=== PATIENT | female | born 1985 | race Caucasian/White ===

== ENCOUNTER 2025-03-14 11:23 | Emergency (ER) | payer MEDICAID, SELFPAY ==
--- NOTE | ~2025-03-14 | CT_ITS ---
CLINICAL HISTORY: right axilla swelling, pain x [address] chest without contrast Comparison: None provided Findings: Lung oreilly are clear without acute infiltrates. Indeterminate 2 mm right upper lobe nodule. 12 month follow-up may be of value. No significant mediastinal adenopathy. No significant free pleural fluid. No significant focal bony abnormalities. Indeterminate soft tissue density noted right axilla. Differential includes normal breast tissue. Contusions, hematomas and/or infection possible. No significant subcutaneous stranding is identified. Multiple other etiologies are possible. This can not be further characterized by CT. Impression: Indeterminate soft tissue densities in right axilla No acute processes This document has been electronically signed by: Wayne Dhillon MD on 03/14/2025 19:13:51
[2025-03-14 11:45] VITALS: BP 100/64; PULSE 97; RESP 16; TEMP 37.1; O2SAT 98; BMI 18.3
--- NOTE | 2025-03-14 11:45 | ED_ITS ---
HPI - General Adult General Chief complaint: Skin/Abscess/Foreign Body Stated complaint: pain under r arm pit Time Seen by Provider: 03/14/25 16:05 Related Data Previous Rx's ?Medication ?Instructions ?Recorded doxycycline hyclate 100 mg capsule 100 mg PO BID cough 7 days #14 caps 03/14/25 Allergies Allergy/AdvReac Type Severity Reaction Status Date / Time No Known Allergies Allergy Verified 03/14/25 11:46 [facility] Social History Social History Alcohol intake: current Smoked in Last 30 Days: Yes Use of substances other than those prescribed or required for medical reasons: No Advance Directives: No Advance Directives Information Provided: Yes Physical Exam ED Vital Signs: Vital Signs - 24 hr 03/14/25 11:45 03/14/25 16:07 03/14/25 17:35 Temperature 98.8 F 98.1 F Pulse Rate 97 62 62 Respiratory Rate 16 16 15 Blood Pressure 100/64 103/61 101/55 L Pulse Oximetry 98 99 100 Oxygen Delivery Method Room Air Room Air Room Air 03/14/25 19:12 Temperature 98.0 F Pulse Rate 60 Respiratory Rate 20 Blood Pressure 92/59 L Pulse Oximetry 98 Oxygen Delivery Method Room Air BMI result Body Mass Index 18.3 Course Course Course Narrative: RME, this is a rapid medical exam performed by Zechariah Gonzales please refer to primary provider for complete H&P- 40 year old female presents for evaluation of a mass to the right axilla that has been growing and more painful for over a week Medications Administered Discontinued Medications Generic Name Dose Route Start Last Admin Trade Name Lei PRN Reason Stop Dose Admin Sodium Chloride 500 mls @ 999 mls/hr 03/14/25 16:30 03/14/25 17:20 Ns IV 03/14/25 17:00 Infused .Q31M MATT Infusion Ketorolac Tromethamine 30 mg 03/14/25 16:22 03/14/25 16:54 Ketorolac Tromethamine 30 Mg/Ml Vial IVPUSH 03/14/25 16:23 30 mg ONCE ONE Administration Medical Decision Making Lab Data 03/14/25 16:33 03/14/25 16:33 Labs: Lab Results 03/14/25 03/14/25 Range/Units 16:33 18:20 WBC 5.7 (4.8-10.8) X10*3/uL RBC 4.11 L (4.20-5.50) X10*6/uL Hgb 12.6 (12.0-16.0) g/dl Hct 36.0 L (37.0-47.0) % MCV 87.6 (80.0-98.0) fL MCH 30.7 (27.0-33.0) pg MCHC 35.0 (31.0-35.0) g/dl RDW 12.7 (11.0-16.0) % Plt Count 238 (160-400) X10*3/uL MPV 10.1 (9.4-12.3) fL Immature Gran % (Auto) 0.2 (0.0-0.4) % Neut % (Auto) 61.4 (45-73) % Lymph % (Auto) 31.1 (20-40) % [place] % (Auto) 4.0 (2-11) % Eos % (Auto) 2.8 (0-4) % Baso % (Auto) 0.5 (0-2) % Lymph # (Auto) 1.8 (1.2-4.9) X10*3/uL [place] # (Auto) 0.2 (0.1-1.2) X10*3/uL Eos # (Auto) 0.2 (0.0-0.4) X10*3/uL Baso # (Auto) 0.0 (0.0-0.2) X10*3/uL Abs Immat Gran (auto) 0.01 (0.00-0.03) X10*3/uL Absolute Neuts (auto) 3.5 (2.0-8.3) x10*3/uL Absolute Nucleated RBC 0.000 (0.0-0.012) X10*3/uL Nucleated RBC % (auto) 0.0 (0.0-0.2) /100WBC Sodium 142 (135-145) mmol/L Potassium 4.3 (3.3-5.1) mmol/L Chloride 105 (96-108) mmol/L Carbon Dioxide 31 H (22-29) mmol/L Anion Gap 10 L (12-20) BUN 8 L (9-16) mg/dL Creatinine 0.71 (0.5-1.4) mg/dL Estim Creat Clear Calc 84.6 Estimated GFR > 60 Random Glucose 97 (60-115) mg/dL Calcium 9.3 (8.4-10.2) mg/dL Total Bilirubin 0.4 (0.0-1.0) mg/dL Direct Bilirubin 0.2 (0.0-0.5) mg/dL AST 13 (5-31) U/L ALT 9 (0-31) U/L Alkaline Phosphatase 77 (39-117) U/L Total Protein 6.9 (6.5-8.0) g/dL Albumin 4.6 (3.5-5.0) g/dL Beta HCG, Quant < 2 mIU/mL Urine Color Yellow Urine Appearance Clear Urine pH 6.5 (5.0-9.0) Ur Specific [place] 1.010 (1.005-1.025) Urine Protein Negative (Neg-Trace) mg/dL Urine Glucose (UA) Negative (Negative) mg/dL Urine Ketones Negative (Negative) mg/dL Urine Blood Negative (Negative) Urine Nitrite Negative (Negative) Ur Leukocyte Esterase Negative (Negative) Urine RBC 0-2 (0-2) /HPF Urine WBC 0-5 (0-5) /HPF Ur Squamous Epith Cells 3-5 (0-2) /HPF Urine Bacteria Trace (None Seen) Hyaline Casts 0-2 (0-2) /LPF Discharge Plan Discharge Clinical Impression: Cellulitis Patient Disposition: Home, Self-Care Additional Instructions: A mass was found in your right armpit area. We can not be sure what is causing this. You will need follow-up with surgery. The phone number for the surgeon was given to you. There is a very small chance this is an infection. Nevertheless we will give you an antibiotic for 1 week. Close follow-up advised. Risk of malignancy still exists. Prescriptions: New doxycycline hyclate 100 mg capsule 100 mg PO BID 7 Days Qty: 14 0RF Referrals: Hoa Edge MD [Physician, General Surgery] - 03/17/25 Referral Note: Please follow-up for the mass in your right axilla in 2 days. Print Language: Polish
[2025-03-14 16:07] VITALS: BP 103/61; PULSE 62; RESP 16; O2SAT 99
--- NOTE | 2025-03-14 16:12 | PC.NURSE ---
Patient is a 40 year old female presents for evaluation of a mass to the right axilla that has been growing and more painful for over a week. Alert and oriented. Lungs clear bilat. Respirations even and non-labored. Abdomen soft, non-tender with positive bowel sounds.
--- NOTE | 2025-03-14 16:23 | ED.SKABFB ---
HPI - Skin/Abscess/Foreign Bdy General Chief complaint: Skin/Abscess/Foreign Body Stated complaint: pain under r arm pit Time Seen by Provider: 03/14/25 16:05 History of Present Illness HPI narrative: Patient is a 40-year-old female presents today with having a less to the right axilla. Grown in size in the last week. Patient claims has gotten worse. Had the pain for the last month. Patient denies any fever chills. Complaining of pain worse with touch. There is no shortness of breath there is no diaphoresis has a history of asthma never been intubated in the past. No cardiac issues in the past. Patient is from home. No diaphoresis. No leg swelling. Pain is worse with touch of the area. There is no worsening pain with deep inspiration. There is no travel history. No previous history of being on control. Patient's menstruation has been normal in timing and duration. Related Data Previous Rx's ?Medication ?Instructions ?Recorded doxycycline hyclate 100 mg capsule 100 mg PO BID cough 7 days #14 caps 03/14/25 Allergies Allergy/AdvReac Type Severity Reaction Status Date / Time No Known Allergies Allergy Verified 03/14/25 11:46 Review of Systems Review of Systems: Positive right axilla pain Yes all other systems are reviewed and are negative [facility] Past Medical History Attestation statement: The following information was validated with the patient. Social History Social History Alcohol intake: current Smoked in Last 30 Days: Yes Use of substances other than those prescribed or required for medical reasons: No Advance Directives: No Advance Directives Information Provided: Yes Physical Exam Exam: Exam: Appearance: Alert. Oriented X3. No acute distress. Eyes: Pupils equal, round and reactive to light. ENT: Pharynx normal. Neck: Normal inspection. Neck supple. No lymph nodes noted. No crepitus CVS: Normal heart rate and rhythm. Pulses normal. Normal S1 and S2 Respiratory: No respiratory distress. Breath sounds normal. No Wheezing. No rales. Examination of the right axilla showed some soft tissue fullness to the axilla. There is no gross fluctuance noted. Pain on palpation. No gross lymph nodes palpable. Abdomen: Soft and nontender. No rigidity. No distention. good BS x4 Skin: Skin warm and dry. Normal skin color. Normal skin turgor. Extremities: No lower extremity edema. Neurovascular intact to all extremities. No Lacerations. No Rash Neuro: Oriented X 3. No motor deficit. No sensory deficit. Moving all extermities. No slurred speech Vital Signs: Vital Signs: Last Vital Signs Temp 98.0 F 03/14/25 19:12 Pulse 60 03/14/25 19:12 Resp 20 03/14/25 19:12 BP 92/59 L 03/14/25 19:12 Pulse Ox 98 03/14/25 19:12 O2 Del Method Room Air 03/14/25 19:12 BMI result Body Mass Index 18.3 Medications Administered Discontinued Medications Generic Name Dose Route Start Last Admin Trade Name Freq PRN Reason Stop Dose Admin Sodium Chloride 500 mls @ 999 mls/hr 03/14/25 16:30 03/14/25 17:20 Ns IV 03/14/25 17:00 Infused .Q31M MATT Infusion Ketorolac Tromethamine 30 mg 03/14/25 16:22 03/14/25 16:54 Ketorolac Tromethamine 30 Mg/Ml Vial IVPUSH 03/14/25 16:23 30 mg ONCE ONE Administration Medical Decision Making Medical Decision Making MDM Narrative: Patient had a nonspecific mass in the right axilla. It did not feel fluctuant to me not suggestive of an abscess. We did a CT of the chest for further delineation. Permanent soft tissue density in the right axilla. Question etiology differential include breast tissue contusion hematoma question infection no subcutaneous stranding was identified making infection less likely. I consulted surgery had them evaluate the CT scan finding. They agreed patient can be followed up on an outpatient this. Currently in stable condition. Patient's white count is normal. Electrolytes are normal. I do not think patient has an infection but will give patient a course of doxycycline for empiric therapy. Have patient follow-up with surgery on an outpatient basis. Differential Diagnosis Differential Diagnoses: The differential diagnosis associated with the presentation includes Infection versus mass Admission/Observation Consideration of admission/observation: Escalation of care including admission/observation considered No need to admit at this time patient's vital signs are stable well-appearing symptoms been ongoing for a month Consult Healthcare Provider Management of the patient was discussed with: Latin Dancer (Surgery. Dr. Edge) Lab Data 03/14/25 16:33 03/14/25 16:33 Labs: Lab Results 03/14/25 03/14/25 Range/Units 16:33 18:20 WBC 5.7 (4.8-10.8) X10*3/uL RBC 4.11 L (4.20-5.50) X10*6/uL Hgb 12.6 (12.0-16.0) g/dl Hct 36.0 L (37.0-47.0) % MCV 87.6 (80.0-98.0) fL MCH 30.7 (27.0-33.0) pg MCHC 35.0 (31.0-35.0) g/dl RDW 12.7 (11.0-16.0) % Plt Count 238 (160-400) X10*3/uL MPV 10.1 (9.4-12.3) fL Immature Gran % (Auto) 0.2 (0.0-0.4) % Neut % (Auto) 61.4 (45-73) % Lymph % (Auto) 31.1 (20-40) % [place] % (Auto) 4.0 (2-11) % Eos % (Auto) 2.8 (0-4) % Baso % (Auto) 0.5 (0-2) % Lymph # (Auto) 1.8 (1.2-4.9) X10*3/uL [place] # (Auto) 0.2 (0.1-1.2) X10*3/uL Eos # (Auto) 0.2 (0.0-0.4) X10*3/uL Baso # (Auto) 0.0 (0.0-0.2) X10*3/uL Abs Immat Gran (auto) 0.01 (0.00-0.03) X10*3/uL Absolute Neuts (auto) 3.5 (2.0-8.3) x10*3/uL Absolute Nucleated RBC 0.000 (0.0-0.012) X10*3/uL Nucleated RBC % (auto) 0.0 (0.0-0.2) /100WBC Sodium 142 (135-145) mmol/L Potassium 4.3 (3.3-5.1) mmol/L Chloride 105 (96-108) mmol/L Carbon Dioxide 31 H (22-29) mmol/L Anion Gap 10 L (12-20) BUN 8 L (9-16) mg/dL Creatinine 0.71 (0.5-1.4) mg/dL Estim Creat Clear Calc 84.6 Estimated GFR > 60 Random Glucose 97 (60-115) mg/dL Calcium 9.3 (8.4-10.2) mg/dL Total Bilirubin 0.4 (0.0-1.0) mg/dL Direct Bilirubin 0.2 (0.0-0.5) mg/dL AST 13 (5-31) U/L ALT 9 (0-31) U/L Alkaline Phosphatase 77 (39-117) U/L Total Protein 6.9 (6.5-8.0) g/dL Albumin 4.6 (3.5-5.0) g/dL Beta HCG, Quant < 2 mIU/mL Urine Color Yellow Urine Appearance Clear Urine pH 6.5 (5.0-9.0) Ur Specific [place] 1.010 (1.005-1.025) Urine Protein Negative (Neg-Trace) mg/dL Urine Glucose (UA) Negative (Negative) mg/dL Urine Ketones Negative (Negative) mg/dL Urine Blood Negative (Negative) Urine Nitrite Negative (Negative) Ur Leukocyte Esterase Negative (Negative) Urine RBC 0-2 (0-2) /HPF Urine WBC 0-5 (0-5) /HPF Ur Squamous Epith Cells 3-5 (0-2) /HPF Urine Bacteria Trace (None Seen) Hyaline Casts 0-2 (0-2) /LPF Radiology Impression Discussion of test interpretation with radiology: I have reviewed the radiologist's reading. Chronic Conditions Additional history obtained through patient's family. Social Determinants Patient?s care significantly limited by Social Determinants of Health including: Problems related to primary support group Discharge Plan Discharge Clinical Impression: Cellulitis Patient Disposition: Home, Self-Care Additional Instructions: A mass was found in your right armpit area. We can not be sure what is causing this. You will need follow-up with surgery. The phone number for the surgeon was given to you. There is a very small chance this is an infection. Nevertheless we will give you an antibiotic for 1 week. Close follow-up advised. Risk of malignancy still exists. Prescriptions: New doxycycline hyclate 100 mg capsule 100 mg PO BID 7 Days Qty: 14 0RF Referrals: Hoa Edge MD [Physician, General Surgery] - 03/17/25 Referral Note: Please follow-up for the mass in your right axilla in 2 days. Print Language: Bahraini
[2025-03-14 16:42] LABS: MANUAL DIFF FLAG NO
[2025-03-14 16:44] LABS: Hematocrit 36.0 % (37.0-47.0); Hemoglobin 12.6 g/dl (12.0-16.0); Imm Gran Abs Auto 0.01 X10*3/uL (0.00-0.03); Imm Gran Pct Auto 0.2 % (0.0-0.4); Lymphocytes Absolute Auto 1.8 X10*3/uL (1.2-4.9); Mean Corpuscular HGB Conc 35.0 g/dl (31.0-35.0); Mean Corpuscular Hemoglobin 30.7 pg (27.0-33.0); Mean Corpuscular Volume 87.6 fL (80.0-98.0); NRBC Abs Auto 0.000 X10*3/uL (0.0-0.012); NRBC Pct Auto 0.0 /100WBC (0.0-0.2); Platelet Count 238 X10*3/uL (160-400); Red Blood Count 4.11 X10*6/uL (4.20-5.50); White Blood Count 5.7 X10*3/uL (4.8-10.8)
[2025-03-14 17:06] LABS: Alanine Aminotransferase 9 U/L (0-31); Albumin Level 4.6 g/dL (3.5-5.0); Alkaline Phosphatase 77 U/L (39-117); Anion Gap 10 (12-20); Aspartate Amino Transferase 13 U/L (5-31); Blood Urea Nitrogen 8 mg/dL (9-16); Calcium 9.3 mg/dL (8.4-10.2); Carbon Dioxide 31 mmol/L (22-29); Chloride 105 mmol/L (96-108); Creatinine Clr Calc Pharmacy 84.6; Estimated Glomerular Filt Rate > 60; Potassium 4.3 mmol/L (3.3-5.1); Sodium 142 mmol/L (135-145); Total Protein 6.9 g/dL (6.5-8.0)
[2025-03-14 17:35] VITALS: BP 101/55; PULSE 62; RESP 15; TEMP 36.7; O2SAT 100
[2025-03-14 18:30] LABS: Appearance Urine Clear; Glucose Urine UA Negative (Negative); PH 6.5 (5.0-9.0); Specific Gravity - Urine 1.010 (1.005-1.025)
[2025-03-14 19:12] VITALS: BP 92/59; PULSE 60; RESP 20; TEMP 36.7; O2SAT 98
[2025-03-14 20:58] VITALS: BP 101/56; PULSE 62; RESP 16; TEMP 36.7; O2SAT 97
== END 2025-03-14 20:59 | disposition home or self-care (01) ==
PROVIDERS: Emergency Provider Emergency Medicine Emergency Medical Services
DX: L03.111 Cellulitis of right axilla (principal); M79.621 Pain in right upper arm; Z79.899 Other long term (current) drug therapy
CPT/HCPCS: 36415; 71250; 80048; 80076; 81001; 84702; 85025; 96361; 96374; 99284; J1885

== ENCOUNTER → 2025-03-14 16:22 | Outpatient (BNV) | payer MEDICAID, SELFPAY | PROVIDERS: Emergency Provider Emergency Medicine Emergency Medical Services; Visit Provider Radiology Diagnostic Radiology | DX: R22.31 Localized swelling, mass and lump, right upper limb (principal); M79.621 Pain in right upper arm | CPT/HCPCS: 71250 ==

== ENCOUNTER 2025-04-23 11:52 | Outpatient (AMB) | payer MEDICAID, SELFPAY ==
--- NOTE | 2025-04-23 11:56 | A.OFFVIS_ITS ---
Intake Visit Reasons: axillary mass Intake Note: Patient is seen in office for ER follow up visit, following for right axillay mass/cellulitis. Pt c/o: seen on ED on 03/14/25 was given antibiotics, all done with antibiotics, denies redness, discharge, lump has increase in size, admits to pain and discomfort [employer] Required: Yes [employer]ounter Language: Client Renewal Specialist Services: Window Shade Cutter And Mounter Present [employer] Sh[employer] Cutter [employer] Mounter Name: Marian WATSON Information Interpreted: non-clinical & clinical Mainframe Programmer: Mainframe Programmer Present Accompanied by: Family/Other Allergies No Known Allergies Allergy (Verified 04/23/25 12:06) Medication List - Last Reconciled 04/23/25 by Murray Flores MD No Known Home Meds HPI HPI axillary mass: Details: [age] year old female referred for pain in the right axilla. She says she went to the emergency room recently because of this. She says this has been having this problem for several months now. She says he used to have limitation of the range of motion of her right upper arm in view of this pain. She had a CAT scan in the ER showing indeterminate findings on the right axilla. She actually points to the area of the pectoralis in the axilla were her pain is. [facility] Medical History Pain in right axilla Surgical History No pertinent past surgical history Social History Alcohol intake: current Review of Systems Const Denies chills and Denies fever(s) Card Denies chest pain, Denies dyspnea and Denies dyspnea on exertion Resp Denies cough, Denies dyspnea and Denies dyspnea on exertion GI Denies hematochezia and Denies change in bowel habits Denies hematuria Musc Denies back pain and Denies limited range of motion Neuro Denies focal weakness and Denies convulsions Psych Denies depression and Denies mood swings Physical Exam Const General: comfortable and no acute distress Orientation/consciousness: patient oriented x3 Neck Neck: Yes no lymphadenopathy Chest Other: No obvious mass in the right axilla but she is very tender on the area of the pectoralis major muscle towards the insertion in the axilla There were no skin changes or redness Resp Auscultation: clear to auscultation bilaterally Cardio Rhythm: regular rhythm GI Palpation (GI): Soft to palpation, nontender and no guarding Neuro General: patient oriented x3 Assessment & Plan Assessment & Plan (1) Pain in right axilla: Code(s): M79.621 - Pain in right upper arm Category: Medical Plan: She is actually tender on the area of the pectoralis muscle towards the insertion. I do not feel any obvious axillary mass. I am going to send her for MRI of this area. I will see her again in the office to review the MRI I will prescribe her NSAIDs in the meantime to help with her pain. Orders: Orders MR shoulder RT wo con Today M79.621 - Pain in right upper arm Medications: Discontinued doxycycline hyclate Discontinued Reason: Patient Completed Course 100 mg PO BID 7 days 14 caps 0RF cough Coding Level of Care Code New Pt Level 3 (18458) Diagnoses Pain in right axilla M79.621
== END 2025-04-23 12:28 | disposition home or self-care (01) ==
LOC: HO.HGS 11:53
PROVIDERS: Visit Provider Surgery
DX: M79.621 Pain in right upper arm (principal)
CPT/HCPCS: 99203

== ENCOUNTER → 2025-04-23 11:52 | Outpatient (BNVA) | payer MEDICAID, SELFPAY | PROVIDERS: Visit Provider Surgery | DX: M79.621 Pain in right upper arm (principal) | CPT/HCPCS: 99202 ==

== ENCOUNTER → 2025-05-19 07:18 | Outpatient (BNV) | payer MEDICAID, SELFPAY | PROVIDERS: Visit Provider Radiology Diagnostic Ultrasound | DX: M75.31 Calcific tendinitis of right shoulder (principal) | CPT/HCPCS: 73221 ==

== ENCOUNTER 2025-05-19 07:19 | Outpatient (REF) | payer MEDICAID, SELFPAY ==
--- NOTE | ~2025-05-19 | MR_ITS ---
EXAMINATION: MR SHOULDER WITHOUT CONTRAST, RIGHT CLINICAL INFORMATION: Pain right upper arm, pain axilla, pain on the pectoralis in the axilla. COMPARISON: None available. TECHNIQUE: MRI of the shoulder without contrast was performed on a high-field scanner. FINDINGS: ROTATOR CUFF: Supraspinatus: Mild tendinosis Infraspinatus: Intact Teres minor: Intact Subscapularis: Intact No muscle atrophy or fatty infiltration. BICEPS: Intact CORACOACROMIAL ARCH: The undersurface of the acromion is curved with no subacromial spur. The acromioclavicular joint is normal. Trace fluid in subacromial subdeltoid space LABRUM/CAPSULE: No displaced labral tear is seen. Intact inferior capsule GLENOHUMERAL JOINT/MARROW: No fracture. No aggressive marrow replacing lesion. Small glenohumeral joint fluid.. No high-grade chondral loss. Additional findings: There is normal signal in the visualized pectoralis and deltoid muscle. Nonspecific subcentimeter axillary lymph nodes.. MR/MR shoulder RT wo con IMPRESSION: * Mild supraspinatus tendinosis. * No displaced labral tear is seen. * Additional findings as above Electronically signed by: Khadar Landrum MD 05/20/2025 10:09 AM FLO
== END 2025-05-19 07:20 | disposition home or self-care (01) ==
LOC: HO.MRI 07:19
PROVIDERS: Visit Provider Surgery
DX: M79.621 Pain in right upper arm (principal)
CPT/HCPCS: 73221